=== PATIENT | female | born 1975 | race Caucasian/White ===

== ENCOUNTER → 2017-11-22 | Outpatient (CLI) | payer OTHER ==
[~2017-11-22] MED LIST: GADOBUTROL 10 ML VIAL IVP ONE
== END ==
LOC: FIMAGING 12:14
PROVIDERS: ATTEND Obstetrics & Gynecology
DX: R10.2 Pelvic and perineal pain (principal)
CPT/HCPCS: A9585

== ENCOUNTER 2018-09-30 05:53 | Day surgery (SDC) | payer OTHER | END 2018-09-30 17:11 | disposition home or self-care (01) | LOC: FSGY 05:53 ==